=== PATIENT | male | born 1965 | race Caucasian/White ===

== ENCOUNTER → 2017-10-03 | Day surgery (SDC) | payer OTHER ==
[~2017-10-03] VITALS: Ht 177.8 cm; Wt 99.8 kg
[~2017-10-03] MED LIST: PANTOPRAZOLE SO40 M1 PO; PERCOCET 5-3251 EACH PO
--- NOTE | 2017-10-03 00:48 | ED GI/GU/ABDOMINAL COMPLAINT ---
History of Present Illness General Chief Complaint: Abdominal Pain/Flank Pain Stated Complaint: RIGHT SIDE UPPER ABD PAIN Source: patient Exam Limitations: no limitations Vital Signs & Intake/Output Vital Signs & Intake/Output Vital Signs Date Time Temp Pulse Resp B/P B/P Pulse O2 O2 Flow FiO2 Mean Ox Delivery Rate 10/03 0747 97.2 70 20 132/75 97 Room Air 10/03 0604 97.0 67 20 125/71 97 Room Air 10/03 0323 97.0 72 20 132/76 99 Room Air 10/03 0131 60 16 134/80 97 Room Air 10/03 0035 96.8 77 20 172/102 98 Room Air Allergies Coded Allergies: No Known Drug Allergies (NKDA 10/03/17) Reconcile Medications Pantoprazole Sodium 40 MG TABLET. 1 TAB PO DAILY ACID REFLUX (Reported) Triage Note: PT TO ED C/O SHRAP RUQ PAIN FOR AN HOUR. PAIN HAD STARTED AT APPROX 10 PN AND THEN GOT WORSE AT 2330. PMH OF ACID REFLUX, TAKES PANTOPRAZOLE. "I'VE HAD THESE EPISODES IN THE PAST, THEY TOLD ME IT WAS THE ACID REFLUX. BUT IT HAS NEVER BEEN THIS BAD" HAD 2 SLICES OF PIZZA AND 2 GLASSES OF WATER FOR DINNER AT 1830. PT VERY UNCOMFORTABLE IN TRIAGE. DENIES ETOH Triage Nurses Notes Reviewed? yes Onset: Abrupt Duration: hour(s): (2) Timing: single episode today Location: suprapubic Radiation: no radiation Activities at Onset: eating (PIZZA) Prior Abdominal Problems: similar symptoms No Modifying Factors: none Associated Symptoms: abdominal pain HPI: This is a 52-year-old male with history of acid reflux on Protonix for the past 3 weeks by his primary care doctor who presents to the ER for chief complaint of sudden onset of right upper quadrant abdominal pain that started 2 hours ago. Patient feels nauseous but didn't vomit. No radiation of the pain. He ate pizza tonight for son's birthday. He has had a few episodes in the past few months like this but it never lasted this long. Usually does not need to take anything for pain to make it resolve. Denies any alcohol use. 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 Positive family history of cholecystitis in his father. No chest pain shortness of breath or sweating. (Mariia Belinda COREA) Past History Travel History Traveled to [place] past 21 day No Medical History Any Pertinent Medical History? see below for history Gastrointestinal: GERD Surgical History Surgical History: none Psychosocial History What is your primary language Romanian Tobacco Use: Quit >30 days ago ETOH Use: denies use Illicit Drug Use: denies illicit drug use Family History Hx Contributory? No (Belinda Chiang MD) Review of Systems Review of Systems Constitutional: Denies: chills, fever. EENTM: Reports: no symptoms. Respiratory: Denies: short of breath. Cardiovascular: Denies: chest pain. GI: Reports: abdominal pain, nausea. Denies: vomiting. Genitourinary: Reports: no symptoms. Musculoskeletal: Denies: back pain. Skin: Reports: no symptoms. Neurological/Psychological: Reports: no symptoms. Hematologic/Endocrine: Denies: bruising, bleeding. Immunologic/Allergic: Reports: no symptoms. All Other Systems: Reviewed and Negative (Belinda Chiang MD) Physical Exam Physical Exam General Appearance: well developed/nourished, alert, awake, anxious, mild distress, moderate distress Head: atraumatic, normal appearance Eyes: Bilateral: normal appearance, PERRL, EOMI. Ears, Nose, Throat, Mouth: hearing grossly normal, moist mucous membrane Neck: normal inspection, supple, full range of motion Respiratory: normal breath sounds, chest non-tender, no respiratory distress Cardiovascular: regular rate/rhythm, normal peripheral pulses Gastrointestinal: normal bowel sounds, soft, tenderness (RUQ) Back: normal inspection, normal range of motion Extremities: normal range of motion Neurologic/Psych: no motor/sensory deficits, awake, alert, oriented x 3 Core Measures ACS in differential dx? No Sepsis Present: No Sepsis Focused Exam Completed? No (Belinda Chiang MD) Progress Differential Diagnosis: biliary colic, cholecystitis, PUD/GERD, perforated viscous Plan of Care: Orders Procedure Date/time Status URINALYSIS 10/04 47 Complete PARTIAL THROMBOPLASTIN TIME 10/04 47 Complete PROTHROMBIN TIME 10/04 47 Complete LIPASE 10/04 47 Complete LACTIC ACID 10/04 47 Complete COMPREHENSIVE METABOLIC PANEL 10/04 47 Complete CBC WITHOUT DIFFERENTIAL 10/04 47 Complete EKG 10/04 47 Active TYPE & SCREEN (NOT X-MATCH) 10/04 47 Complete Laboratory Tests 10/03/17 0655: Urine Color YEL, Urine Clarity CLEAR, Urine pH 6.0, Ur Specific [place] 1.015, Urine Protein NEG, Urine Ketones NEG, Urine Nitrite NEG, Urine Bilirubin NEG, Urine Urobilinogen 0.2, Ur Leukocyte Esterase NEG, Ur Microscopic EXAM NOT REQUIRED, Urine Hemoglobin NEG, Urine Glucose NEG 10/03/17 0348: Lactic Acid Cancelled 10/03/17 0053: Anion Gap 11, Estimated GFR > 60, BUN/Creatinine Ratio 28.9 H, Glucose 101 H, Lactic Acid 0.6 L, Calcium 9.8, Total Bilirubin 0.5, AST 24, ALT 44, Alkaline Phosphatase 52, Total Protein 7.0, Albumin 4.2, Globulin 2.8, Albumin/Globulin Ratio 1.5, Lipase 126, PT 11.5, INR 1.05, APTT 30, CBC w Diff NO MAN DIFF REQ, RBC 4.91, MCV 86.2, MCH 29.3, MCHC 34.0, RDW 13.6, MPV 8.9, Gran % 47.0, Lymphocytes % 39.5, Monocytes % 12.0 H, Eosinophils % 1.0, Basophils % 0.5, Absolute Granulocytes 3.0, Absolute Lymphocytes 2.5, Absolute Monocytes 0.8 H, Absolute Eosinophils 0.1, Absolute Basophils 0 2:54 AM MUCH IMPROVED AFTER 2ND DOSE OF MORPHINE. CT CONSISTENT WITH ACUTE CHOLECYSTITIS. WALL EDEMA/IFLAMMATION. NO PAIN AT THIS TIME, NO FEVER, NORMAL WBC AND LFT'S. WILL CONTINUE TO MONITOR. 3:46 AM NOW COMPLAINING OF PAIN RETURNING. SURGERY PAGED. 3:49 AM D/W DR BELLO, SURGICAL PA PAGED. 4:30 AM SEEN BY DEJAN CRUZ, WILL GO TO OR FROM THE ED. Diagnostic Imaging: Viewed by Me: CT Scan. Discussed w/RAD: CT Scan. Radiology Impression: PATIENT: ALEJANDRA OCAMPO PRESENT AGE: 52 PATIENT ACCOUNT NO: [id number] : 63 LOCATION: [facility] ORDERING PHYSICIAN: Belinda Chiang MD SERVICE DATE: 10/03/17 EXAM TYPE: CAT - CT ABD & PELVIS W IV CONTRAST EXAMINATION: CT ABDOMEN AND PELVIS WITH CONTRAST CLINICAL INFORMATION: Right upper quadrant pain 2 hours after eating. COMPARISON: None TECHNIQUE: Multidetector volumetric imaging was performed of the abdomen and pelvis following IV administration of 95 mL of Optiray 320 intravenous contrast. Sagittal and coronal reformatted images were obtained on the technologist's workstation. DLP: 619.91 mGy-cm FINDINGS: LUNG BASES: The visualized lung bases are unremarkable. LIVER, GALLBLADDER, AND BILIARY TREE: There is mild low attenuation of liver parenchyma due to fatty change. There is no focal liver lesion. There is no intrahepatic bile duct dilatation. There is edema around the gallbladder with mild gallbladder wall thickening. Changes of acute cholecystitis. There is no bile duct dilatation. Extrahepatic CBD measures 5 mm. There is no calcified stone in the gallbladder or the bile ducts. PANCREAS : Fatty atrophy of the pancreas. No inflammation or edema of the pancreas. No pancreatic duct dilatation. SPLEEN: Unremarkable. ADRENAL GLANDS: Unremarkable. KIDNEYS AND URETERS: The kidneys are normal in size, shape, and attenuation. No hydronephrosis, hydroureter, or calculi seen. No perinephric stranding. BLADDER: Unremarkable. GASTROINTESTINAL TRACT: There is diverticulosis of colon. No diverticulitis. Moderate amount of stool in the colon. The appendix is normal. The small bowel loops are unremarkable. ABDOMINAL WALL: There are small bilateral fat-containing hernias. LYMPH NODES: Normal. VASCULAR: Unremarkable. PELVIC VISCERA: Prostate measures 3.5 cm transverse. OSSEOUS STRUCTURES: Unremarkable. IMPRESSION: 1. Gallbladder wall thickening and edema around the gallbladder consistent with an acute cholecystitis. No calcified gallstone. No bile duct dilatation. DICTATED BY: Amador Dickson MD DATE/TIME DICTATED:10/03/17231 STORAGE MANAGER:MATEO DATE/TIME TRANSCRIBED:10/03/17231 CONFIDENTIAL, DO NOT COPY WITHOUT APPROPRIATE AUTHORIZATION. <Electronically signed in Other Vendor System> SIGNED BY: Amador Dickson MD 10/03/17237 Initial ED EKG: NSR (IVCD) Hand-Off Endorsed To: Evens Cota DO Endorsed Time: 0700 Pending: other (OR WITH DR BELLO) (Mariia COREA,Belinda) Departure Departure Disposition: STILL A PATIENT Condition: Stable Clinical Impression Primary Impression: Acute cholecystitis Departure Forms: Customer Survey General Discharge Information OR/GI Note Spoke With: Christian Bello DO ED Treatment Decision: ALEJANDRA OCAMPO requires urgent operative management or an emergent procedure that cannot be performed in the Emergency Room setting. Transport To: [facility] (Mariia COREA,Belinda) Departure Comments 10/03/17 9:29 AM Patient was signed out to me by Dr. Chiang. He is pending transport to the OR for laparoscopic cholecystectomy. He continues to have right upper quadrant pain. 4 mg of IV morphine was given. (Evens Cota DO)
[2017-10-03 01:07] LABS: ABSOLUTE BASOPHIL COUNT 0 /CUMM (0.0-0.2); ABSOLUTE EOSINOPHIL COUNT 0.1 /CUMM (0.0-0.7); ABSOLUTE LYMPH COUNT 2.5 /CUMM (1.2-3.4); ABSOLUTE MONOCYTE COUNT 0.8 /CUMM (0.10-0.60); BASOPHIL % 0.5 % (0.0-2.0); HEMATOCRIT 42.3 % (42-52); MEAN CORPUSCULAR HGB 29.3 PG (27.0-31.0); MEAN CORPUSCULAR VOLUME 86.2 FL (80.0-94.0); MEAN PLATELET VOLUME 8.9 FL (7.4-10.4); PLATELET COUNT 256 /CUMM (130-400); RBC DISTRIBUTION WIDTH 13.6 % (11.5-14.5); RED BLOOD CELL CT 4.91 /CUMM (4.70-6.10); WHITE BLOOD CELL COUNT 6.3 /CUMM (4.8-10.8)
[2017-10-03 01:17] LABS: PT 11.5 SEC (9.4-12.5); PTT 30 SEC (25-37)
--- NOTE | 2017-10-03 02:38 | CT SCAN REPORT ---
EXAMINATION: CT ABDOMEN AND PELVIS WITH CONTRAST CLINICAL INFORMATION: Right upper quadrant pain 2 hours after eating. COMPARISON: None TECHNIQUE: Multidetector volumetric imaging was performed of the abdomen and pelvis following IV administration of 95 mL of Optiray 320 intravenous contrast. Sagittal and coronal reformatted images were obtained on the technologist's workstation. DLP: 619.91 mGy-cm FINDINGS: LUNG BASES: The visualized lung bases are unremarkable. LIVER, GALLBLADDER, AND BILIARY TREE: There is mild low attenuation of liver parenchyma due to fatty change. There is no focal liver lesion. There is no intrahepatic bile duct dilatation. There is edema around the gallbladder with mild gallbladder wall thickening. Changes of acute cholecystitis. There is no bile duct dilatation. Extrahepatic CBD measures 5 mm. There is no calcified stone in the gallbladder or the bile ducts. PANCREAS: Fatty atrophy of the pancreas. No inflammation or edema of the pancreas. No pancreatic duct dilatation. SPLEEN: Unremarkable. ADRENAL GLANDS: Unremarkable. KIDNEYS AND URETERS: The kidneys are normal in size, shape, and attenuation. No hydronephrosis, hydroureter, or calculi seen. No perinephric stranding. BLADDER: Unremarkable. GASTROINTESTINAL TRACT: There is diverticulosis of colon. No diverticulitis. Moderate amount of stool in the colon. The appendix is normal. The small bowel loops are unremarkable. ABDOMINAL WALL: There are small bilateral fat-containing hernias. LYMPH NODES: Normal. VASCULAR: Unremarkable. PELVIC VISCERA: Prostate measures 3.5 cm transverse. OSSEOUS STRUCTURES: Unremarkable. IMPRESSION: 1. Gallbladder wall thickening and edema around the gallbladder consistent with an acute cholecystitis. No calcified gallstone. No bile duct dilatation.
--- NOTE | 2017-10-03 07:02 | History & Physical Pre-Op ---
Apollo Driscoll 10/03/17 0653: General Information and HPI MD Statement: I have seen and personally examined ALEJANDRA OCAMPO and documented this H&P. The patient is a 52 year old M who presented with a patient stated chief complaint of abdominal pain. Source of Information: patient Exam Limitations: no limitations History of Present Illness: This is a 52-year-old male who presents to the ER with severe epigastric and RUQ pain that started a few hours after presenting. He had previously eaten a few slices of pizza. He was getting similar episodes of this pain over the last month or so and was seen by his primary care doctor who diagnosed him with acid reflux and he has been on on Protonix. His pain previously was never this bad. He usually gets postprandial pain, nonradiating, no fever, had mild chills this evening. Patient feels nauseous but didn't vomit. Denies any alcohol use. 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 History of hepatitis C however states that he was treated and no longer has hepatitis C. Of note his father had gallbladder trouble and he did a cholecystectomy around his same age. He denies any lower abdominal pain or diarrhea. At time of my evaluation he has received thus far 3 doses of IV narcotics to help control his pain and he is still complaining of moderate pain Allergies/Medications Allergies: Coded Allergies: No Known Drug Allergies (NKDA 10/03/17) Home Med list Pantoprazole Sodium 40 MG TABLET. 1 TAB PO DAILY ACID REFLUX (Reported) Past History Medical History Gastrointestinal: GERD, history of hepatitis C, treated Other Medical Hx: History of drug and alcohol abuse Surgical History Pertinent Surgical History: none Past Family/Social History Family History Relations & Conditions if any Family history was reviewed; no changes noted. Psychosocial History ETOH Use: denies use Illicit Drug Use: denies illicit drug use Functional Ability ADLs Independent: dressing, eating, toileting, bathing. Review of Systems Review of Systems: Review of systems: See HPI, all other systems negative. Constitutional: No chills fever or weight loss HEENT: No visual changes no sore throat no congestion Cardiovascular: No chest pain ,palpitation , orthopnea or ankle swelling Skin: No jaundice no rashes Respiratory: No dyspnea cough sputum or hemoptysis GI: See HPI Musclulo skeletal: No back pain no neck pain, Neurologic: No numbness no confusion Psych: No stress anxiety or depression,. Heme/endocrine: No bruising no bleeding no polyuria or polydipsia Immunology: No splenectomy or history of AIDS Exam & Diagnostic Data Last 24 Hrs of Vital Signs/I&O Vital Signs Date Time Temp Pulse Resp B/P B/P Pulse O2 O2 Flow FiO2 Mean Ox Delivery Rate 10/03 0604 97.0 67 20 125/71 97 Room Air 10/03 0323 97.0 72 20 132/76 99 Room Air 10/03 0131 60 16 134/80 97 Room Air 10/03 0035 96.8 77 20 172/102 98 Room Air Intake & Output 10/03 0800 10/03 0000 10/02 1600 Intake Total 1000 Output Total Balance 1000 Intake, IV 1000 Patient 220 lb Weight Weight Reported by Patient Measurement Method Physical Exam: Well-developed well-nourished no apparent distress. HEENT: Atraumatic, extraocular motion intact Neck: Supple, no lymphadenopathy Heart: Regular rate and rhythm no murmur Respiratory: No respiratory distress clear to auscultation bilateral Abdomen: Guarding, tenderness noted in the epigastric and more severely in the right upper quadrant with a positive Velázquez sign. No lower abdominal tenderness. No peritoneal signs. Extremities: No edema, no calf pain Neuro: Alert and oriented x3 Psych: Mood affect normal, normal memory normal judgment. Skin: Warm and dry, no rash on exposed skin Last 24 Hrs of Labs/Dorian: Laboratory Tests 10/03/17 0348: Lactic Acid Cancelled 10/03/17 0053: Anion Gap 11, Estimated GFR > 60, BUN/Creatinine Ratio 28.9 H, Glucose 101 H, Lactic Acid 0.6 L, Calcium 9.8, Total Bilirubin 0.5, AST 24, ALT 44, Alkaline Phosphatase 52, Total Protein 7.0, Albumin 4.2, Globulin 2.8, Albumin/Globulin Ratio 1.5, Lipase 126, PT 11.5, INR 1.05, APTT 30, CBC w Diff NO MAN DIFF REQ, RBC 4.91, MCV 86.2, MCH 29.3, MCHC 34.0, RDW 13.6, MPV 8.9, Gran % 47.0, Lymphocytes % 39.5, Monocytes % 12.0 H, Eosinophils % 1.0, Basophils % 0.5, Absolute Granulocytes 3.0, Absolute Lymphocytes 2.5, Absolute Monocytes 0.8 H, Absolute Eosinophils 0.1, Absolute Basophils 0 Diagnostic Data Other Results PATIENT: ALEJANDRA OCAMPO PRESENT AGE: 52 PATIENT ACCOUNT NO: [id number] : 63 LOCATION: [facility] ORDERING PHYSICIAN: Belinda Chiang MD SERVICE DATE: 10/03/17 EXAM TYPE: CAT - CT ABD & PELVIS W IV CONTRAST EXAMINATION: CT ABDOMEN AND PELVIS WITH CONTRAST CLINICAL INFORMATION: Right upper quadrant pain 2 hours after eating. COMPARISON: None TECHNIQUE: Multidetector volumetric imaging was performed of the abdomen and pelvis following IV administration of 95 mL of Optiray 320 intravenous contrast. Sagittal and coronal reformatted images were obtained on the technologist's workstation. DLP: 619.91 mGy-cm FINDINGS: LUNG BASES: The visualized lung bases are unremarkable. LIVER, GALLBLADDER, AND BILIARY TREE: There is mild low attenuation of liver parenchyma due to fatty change. There is no focal liver lesion. There is no intrahepatic bile duct dilatation. There is edema around the gallbladder with mild gallbladder wall thickening. Changes of acute cholecystitis. There is no bile duct dilatation. Extrahepatic CBD measures 5 mm. There is no calcified stone in the gallbladder or the bile ducts. PANCREAS: Fatty atrophy of the pancreas. No inflammation or edema of the pancreas. No pancreatic duct dilatation. SPLEEN: Unremarkable. ADRENAL GLANDS: Unremarkable. KIDNEYS AND URETERS: The kidneys are normal in size, shape, and attenuation. No hydronephrosis, hydroureter, or calculi seen. No perinephric stranding. BLADDER: Unremarkable. GASTROINTESTINAL TRACT: There is diverticulosis of colon. No diverticulitis. Moderate amount of stool in the colon. The appendix is normal. The small bowel loops are unremarkable. ABDOMINAL WALL: There are small bilateral fat-containing hernias. LYMPH NODES: Normal. VASCULAR: Unremarkable. PELVIC VISCERA: Prostate measures 3.5 cm transverse. OSSEOUS STRUCTURES: Unremarkable. IMPRESSION: 1. Gallbladder wall thickening and edema around the gallbladder consistent with an acute cholecystitis. No calcified gallstone. No bile duct dilatation. DICTATED BY: Amador Dickson MD DATE/TIME DICTATED:10/03/17231 OXYACETYLENE BURNER:MATEO DATE/TIME TRANSCRIBED:10/03/17231 Assessment/Plan Assessment/Plan: 52-year-old male with several episodes of biliary colic over the last month, now presents with severe pain and CT scan findings as well as exam findings consistent with acute cholecystitis Patient requires a laparoscopic cholecystectomy, this will be performed later today. Nothing by mouth, IV fluids, pain medication as needed, likely he can go home after the surgery if all goes well. He understands and agrees with plan and would very much like to have his surgery done today. Discussed with Dr. Seay As Ranked By This Provider Problem List: 1. Acute cholecystitis 2. Abdominal pain Christian Seay DO 10/03/17 1308: Attending MD Review Statement Attending Statement Attending MD Statement: examined this patient, discuss w/resident/PA/DIRECTOR OF PROFESSIONAL SERVICES, agreed w/resident/PA/DIRECTOR OF PROFESSIONAL SERVICES, reviewed EMR data (avail), reviewed images Attending Assessment/Plan: Patient seen and examined, agree with above. Abdominal pain on and off for past month, severe last night that forced a trip to the ED. AVSS UO ok. Abd-soft, RUQ pain. Labs ok. CT scan acute cholecystitis. NPO/IVF, will plan for Lap Rosio today. D/W patient and ED staff.
[2017-10-03 10:50] VITALS: BP 126/78
--- NOTE | 2017-10-03 13:20 | Operative Report ---
Operative/Inv Procedure Report Surgery Date: 10/03/17 Name of Procedure: Laparoscopic Cholecystectomy Pre-Operative Diagnosis: Acute Cholecystectomy Post-Operative Diagnosis: Same Estimated Blood Loss: 50ml to 100ml Surgeon/Therapeutic Assistant: Christian Barnes Anesthesia: general endotracheal tube IV Fluids: 1200 cc Drains: None Specimens: Gallbladder Complications: None Condition: Stable Operative Indication: This is a 52-year-old male that presented to the emergency room with abdominal pain. After appropriate workup was completed the patient was diagnosed with acute cholecystitis. A laparoscopic possible open cholecystectomy was discussed in detail. All risks including but not limited to bleeding, infection, bile leak, and injury to surrounding duct/bowel were discussed in detail. The patient understood everything and decided to proceed. Operative/Procedure Note Note: The patient was brought to the operating room and placed on the operating room table in supine position. Venodyne stockings were placed and adequate general endotracheal anesthesia was obtained. The patient was prepped and draped in standard surgical fashion. We began the procedure by making a 2 cm transverse incision in the infraumbilical crease. The incision was carried down to the fascia, once the fascia was clearly visualized it was picked up between 2 jt clamps. The fascia was divided in the midline and once we entered the peritoneum 2 stay 0 Vicryl sutures were placed on each side. A 12 mm blunt port was inserted and the abdominal cavity was insufflated to 15 mmHg. A 10 mm 30 laparoscope was introduced and upon initial examination no obvious gross pathology was seen. We did note a distended gallbladder in the right upper quadrant with a thick/edematous wall. Accessory trocars were placed, all 5 mm, one in the epigastrium and 2 in the right upper quadrant (one in the midclavicular line and one in the anterior axillary line, both 2 fingerbreadths below the costal margin). The gallbladder was grasped with the lateralmost trocar and retracted up over the liver. Using the other 2 accessory trocars the infundibulum was grasped and the peritoneum was lysed using blunt dissection and using hook electrocautery. The cystic duct and cystic artery were visualized. The common bile duct was visualized and it was away from our area of dissection. The cystic duct and artery were skeletonized and divided between clips, 3 clips to stay and one clip on the gallbladder side for the duct and 2 clips to stay and one clip on the gallbladder side for the artery. The gallbladder was dissected off the liver bed using hook electrocautery maintaining hemostasis. Prior to completely removing the gallbladder off the liver bed we examined the area of dissection no obvious bile leak or bleeding was noted, the clips appeared to be in good position. The gallbladder was completely detached from the liver bed. We switched to a 5 mm laparoscope and a 10 mm Endobag was introduced through the umbilical trocar site. The gallbladder was placed in the bag and removed through the umbilicus. The abdomen was reinsufflated. We switched back to a 10 mm laparoscope and examined our area of dissection. No obvious bile leak or bleeding was noted. The right upper quadrant was irrigated until clear. All ports were removed under direct visualization, no obvious bleeding was noted. The umbilical trocar site was closed using 0 Vicryl suture. The skin was closed using 4-0 Monocryl. Steri-Strips and dressings were placed. The patient was successfully extubated and transferred to the recovery room in stable condition. The patient tolerated the procedure well with no complications. Findings: Edematous gallbladder, thick gallbladder wall, large gallstone
== END ==
LOC: ERH 00:31 → ER-OR 00:51 → STS 11:07 → ER-OR 15:11
PROVIDERS: Emergency Medicine
DX: K80.12 Calculus of gallbladder with acute and chronic cholecystitis without obstruction (principal); B19.20 Unspecified viral hepatitis C without hepatic coma; K21.9 Gastro-esophageal reflux disease without esophagitis
CPT/HCPCS: 74177; 81003; 88304; 93005; 93010; 96361; 96374; 96376; J0690